=== PATIENT | female | born 2000 | race Caucasian/White ===

== ENCOUNTER 2022-07-10 10:40 | Outpatient (CLI) | payer OTHER, BC ==
--- NOTE | 2022-07-10 12:07 | XRAY Report ---
PROCEDURE: Ribs w/PA Chest RT INDICATIONS: RIB PAIN RT SIDED TECHNIQUE: 2 views of the right ribs were acquired, along with a single view chest. COMPARISON: None FINDINGS: Surgical changes and devices: None. Bones and chest wall: No fractures or dislocations. No suspicious bony lesions. Overlying soft tis sues appear unremarkable. Lungs and pleura: No pleural effusions or pneumothorax. Lungs appear clear. Mediastinum: Mediastinal contours appear normal. Heart size is normal. IMPRESSION: No gross displaced right rib fracture. No acute cardiopulmonary pathology. Reviewed by: Patrick Zarate MD on 07/10/2022 12:06 PM PST Approved by: Patrick Zarate MD on 07/10/2022 12:06 PM [facility] Station ID: [id number]
== END 2022-07-10 10:41 | disposition home or self-care (01) ==
LOC: DI 10:40
PROVIDERS: ATTEND Registered Nurse
DX: R07.81 Pleurodynia (principal)